=== PATIENT | female | born 1960 | race Caucasian/White ===

== ENCOUNTER 2017-04-23 11:26 | Emergency (ER) | payer BC ==
--- NOTE | 2017-04-23 12:04 | EDM.PDOC ---
ED HPI GENERAL MEDICAL PROBLEM - General Chief Complaint: Head Injury Stated Complaint: FELL ON ICE 04/23/17 Time Seen by Provider: 04/23/17 11:59 Source of Information: Reports: Patient, Family, RN, RN Notes Reviewed History Limitations: Reports: No Limitations - History of Present Illness INITIAL COMMENTS - FREE TEXT/NARRATIVE: Pt presents to the ER with c/o pain after a fall. She states she slipped on the ice about 1 hour ago. She states she hit her head and is not sure if she lost consciousness or not. She states she remembers falling. She states she could not move immediately after the fall. She began moving her hands to keep moving. She states her head and coccyx hurt. She states she fell on her buttocks as well as the right elbow, but there is no pain in the elbow at this time. She states she has a lump on the back of her head for which she iced prior to arrival. Pt rates her pain a 5/10 in the head and the coccyx. She states the pain intensifies when she has to sit up. Onset: Today, Sudden Onset Time: 11:00 Duration: Constant Location: Reports: Head, Other (Sacrum/coccyx) Quality: Reports: Throbbing Severity: Moderate Improves with: Reports: None Worsens with: Reports: None Associated Symptoms: Reports: Headaches, Other (tingling of the upper extremities bilaterally) Treatments GRAIN WEIGHER: Reports: Cold Therapy Occipital Head Pain Score (Numeric/FACES): 5 Neck Pain Score (Numeric/FACES): 5 Sacral Pain Score (Numeric/FACES): 5 - Related Data Allergies Allergy/AdvReac Type Severity Reaction Status Date / Time aspirin Allergy Severe anaphylactic Verified 04/23/17 11:36 reaction amoxicillin Allergy Intermediate Rash Verified 04/23/17 11:36 erythromycin base AdvReac Mild nausea and Verified 04/23/17 11:36 diarrhea Home Meds: Home Meds Calcium Carbonate [Calcium] 1 tab PO DAILY 04/23/17 [History] Fluticasone Furoate [Flonase Sensimist] 2 spray NASBOTH DAILY 04/23/17 [History] Levothyroxine [Synthroid] 1 tab PO DAILY 04/23/17 [History] Mometasone/Formoterol [Dulera 100-5 MCG] 2 puff INH DAILY 04/23/17 [History] Montelukast [Singulair] 1 tab PO BEDTIME 04/23/17 [History] Multivitamin with Minerals [Hair, Skin and Nails] 1 tab PO DAILY 04/23/17 [ History] Norgestimate-Ethinyl Estradiol [[place] 28 Tablet] 1 tab PO ASDIRECTED 04/23 [History] ED ROS GENERAL - Review of Systems Review Of Systems: ROS reveals no pertinent complaints other than HPI. ED EXAM, HEAD INJURY - Physical Exam Exam: See Below Exam Limited By: No Limitations General Appearance: Alert, WD/WN, No Apparent Distress Head: Scalp Swelling, Scalp Tenderness (Occipital region) Nexus Criteria: Posterior, Midline Cervical Tenderness, Painful Distraction Injuries. No: Evidence of Intoxication, Altered Level of Consciousness, Focal Neurological Deficit Ears: Normal External Exam, Hearing Grossly Normal Course - Vital Signs Last Recorded V/S: Last Vital Signs Temp 99.3 F 04/23/17 11:28 Pulse 76 04/23/17 11:28 Resp 18 04/23/17 11:28 BP 125/66 04/23/17 11:28 Pulse Ox 99 04/23/17 11:28 - Radiology Interpretation Free Text/Narrative:: Head ct without contrast: No acute findings Cervical spine: No acute findings Sacro/coccyx: No acute findings See Rad report Departure - Departure Time of Disposition: 13:15 Disposition: Home, Self-Care 01 Condition: Fair Clinical Impression: Coccygeal contusion Qualifiers: Encounter type: initial encounter Qualified Code(s): S30.0XXA - Contusion of lower back and pelvis, initial encounter Contusion of head Qualifiers: Encounter type: initial encounter Contusion of head detail: scalp Qualified Code(s): S00.03XA - Contusion of scalp, initial encounter Concussion Qualifiers: Encounter type: initial encounter Loss of consciousness presence/duration: with LOC of 30 min or less Qualified Code(s): S06.0X1A - Concussion with loss of consciousness of 30 minutes or less, initial encounter - Discharge Information Instructions: Concussion, Adult, [id number], Post-Concussion Syndrome, Easy- to-Read, Facial or Scalp Contusion, [id number] Referrals: Raghavendra Mendoza NP [Primary Care Provider] - Forms: ED Department Discharge Additional Instructions: Follow up with your primary care facility next week. Tylenol or ibuprofen as directed, as needed for pain. Diclofenac 50mg orally once every 8 hours as needed for pain Flexeril 10mg orally once every 8 hours as needed for muscle spasm Do not take the diclofenac and ibuprofen together (Both are NSAID's) Ice to the head and coccyx as tolerated.
--- NOTE | 2017-04-23 12:38 | CR ---
Clinical history: 57-year-old female ground level fall and loss of consciousness. Interpretation: AP, lateral cervical spine exam abnormal... Dense reactive atlantoaxial sclerosis and signs of chronic multilevel lower cervical disc disease (in terspace narrowing endplate sclerosis and hypertrophic marginal/uncinate spur formation C5-6 C6-C7 le vels). Homogeneous normal bone density and normal height/alignment of the 7 cervical vertebra. No sign of pathologic skeletal lesion, vertebral soft tissue swelling, cervical fracture or dislocati on. No cervical rib anomalies. Lung apices clear. CONCLUSION: Multilevel lower cervical disc disease with associated reactive arthritic change. No frac tures.
--- NOTE | 2017-04-23 12:42 | CT ---
Clinical history: 57-year-old female fall and "loss of consciousness". Scan technique: Volume acquisition of data emergency unenhanced CT scan of the head and brain obtaine d with the patient lying supine on the Siemens multi slice scanner [place], [place]. All data archived in the PACS system for storage and study (bone/brain windows). Interpretation: 1. Dense opacification frontal, ethmoid and left maxillary sinuses characteristic of chronic inflamma tion. No bony wall destruction or pathologic air-fluid levels. Less pronounced mucoperiosteal thicken ing right maxillary and sphenoid sinuses. 2. Uniformly thick bony calvarium without sign of skull fracture, underlying brain contusion or epidu ral/subdural hematoma. 3. Symmetric martinez-white matter pattern and underlying mirror-image normal ventricles. Physiologic mid line and symmetric choroid plexus calcifications. 4. No supratentorial or posterior fossa mass lesion. 5. No sign of acute intracerebral/intraventricular/subarachnoid bleed. 6. Cerebellum and brainstem unremarkable. CONCLUSION: Pansinusitis. No intracranial mass, hydrocephalus, skull fracture or signs of closed head injury.
--- NOTE | 2017-04-23 12:43 | CR ---
Clinical history: 57-year-old female injured fall (loss of consciousness and headaches). Interpretation: AP and lateral views of the lowest lumbar vertebra, sacrum and coccyx unremarkable. No sign of sacrococcygeal fracture or segmental dislocation. Symmetric spacing normal-appearing SI and hip joints. No foreign bodies.
== END 2017-04-23 13:25 | disposition home or self-care (01) ==
LOC: DL.ED 11:26
DX: S06.0X1A Concussion with loss of consciousness of 30 minutes or less, initial encounter (principal); S00.03XA Contusion of scalp, initial encounter; S30.0XXA Contusion of lower back and pelvis, initial encounter; Z88.6 Allergy status to analgesic agent; Z88.1 Allergy status to other antibiotic agents; Z79.899 Other long term (current) drug therapy; W01.10XA Fall on same level from slipping, tripping and stumbling with subsequent striking against unspecified object, initial encounter
CPT/HCPCS: 70450; 72040; 72220; 99284